=== PATIENT | female | born 2000 | race Caucasian/White ===

== ENCOUNTER 2024-09-17 14:21 | Emergency (ER) | payer MEDICAID, SELFPAY ==
[2024-09-17 14:30] VITALS: BP 141/91; PULSE 102; RESP 20; TEMP 36.6; O2SAT 97
[2024-09-17 14:33] VITALS: BP 141/91; PULSE 102; RESP 20; TEMP 36.6; O2SAT 97
[2024-09-17 15:36] VITALS: PULSE 95; O2SAT 98
[2024-09-17] MEDS: Amoxicillin 875/Clav. 125 TAB PO (15:55)
--- NOTE | 2024-09-17 15:58 | W.ED.GENAD ---
Discharge Plan Disposition Patient Disposition: Home Condition: Stable Discharge Details Clinical Impression: External otitis of right ear Primary Care Provider: Cait Luciano ED Provider: Wade Melgoza Home Meds and New Rx's Prescriptions: Continued fluticasone propionate 16 GM spray,suspension 1 spray NS DAILY Qty: 1 Rx Instructions: ONE SPRAY EACH NOSTRIL ONCE A DAY loratadine 10 MG tablet 1 tab PO HS Qty: 90 levalbuterol tartrate [Xopenex HFA] 1 PUFF HFA aerosol inhaler 2 puff Inhalation PRN PRN (Reason: Shortness Of Breath) amoxicillin-pot clavulanate 875-125 mg tablet 1 tab PO .bid for 10 days Discontinued Cortisporin-TC 3.3-3-10-0.5 mg/mL drops,suspension 10 drp otic (ear) BID Rx Instructions: apply to (cotton) wick; replace wick every 24 hours Discharge Instructions Instructions: Outer Ear Infection ED Additional Instructions: Use eardrops as prescribed. Please take tylenol (acetaminophen) 650 mg every 6 hours as needed for pain. Be sure to avoid any other medications that containe tylenol (acetaminophen). Do not use ibuprofen during . Please follow-up with ENT. Call for an appointment. Return to the ER immediately for any worsening or new concerning symptoms. Referrals: [facility] [Provider Group] Cait Luciano [Primary Care Provider] - Discharge Data Discharge Date/Time-TO BE ENTERED AT DEPARTURE: 09/17/24 16:41 HPI General Mode of arrival: ambulatory. Date/Time Provider Initiated Documentation: 09/17/24 14:56. Limitations to Documentation: no limitations. Information obtained by: patient. HPI Narrative: HISTORY OF PRESENT ILLNESS The patient is a 23-year-old female with right ear pain. She reports green pus with an unpleasant odor from her ear, burning sensation after eardrop use, pain radiating down her neck, and thick fluid accumulation. No fevers or rashes. No recent swimming. Using heat compresses for relief. Advised to take Tylenol and ibuprofen every 6 to 8 hours. Prescribed Augmentin for 10 days, received a dose at 0500 hours today. History of chronic inner ear infections since age 7, tonsillectomy at age 4, adenoidectomy, and tympanostomy tube placement at age 12. Difficulty chewing and eating due to pain, no gum swelling. Currently 28 weeks . Went to the emergency room at 0300 hours for pain, advised to continue Tylenol and prescribed Augmentin. No daily medications except inhaler and EpiPen as needed. Related Data Home Medications ?Medication ?Instructions ?Recorded ?Confirmed levalbuterol tartrate 45 2 puff inhalation PRN PRN 01/11/13 09/17/24 mcg/actuation aerosol inhaler Shortness Of Breath (Xopenex HFA) fluticasone propionate 50 1 spray NS DAILY ##1 05/26/13 09/17/24 mcg/actuation nasal spray,suspension loratadine 10 mg tablet 1 tab PO HS #90 tabs 05/26/13 09/17/24 amoxicillin 875 mg-potassium 1 tab PO .bid for 10 days 09/17/24 09/17/24 clavulanate 125 mg tablet Allergies Allergy/AdvReac Type Severity Reaction Status Date / Time doxycycline AdvReac Mild upstets Unverified 04/30/13 10:17 stomach General Stated Complaint: EarProblem GAURAV: 3 Review of Systems All systems reviewed & are unremarkable except as noted in HPI and below ENT Ears, Nose, Mouth, and Throat: Reports as per HPI Exam Const General: cooperative and no acute distress HENMT Head: normocephalic and atraumatic Ears: TM normal on the left, mastoids normal, EAC abnormal (lt) erythema, edema, EAC tenderness and other (not able to visualize right TM due to swelling of external canal) and periauricular adenopathy on the right (Infra-auricular) General nose exam: external nose normal Mouth: moist mucous membranes Throat: posterior oropharynx normal Eyes Conjunctivae: normal conjunctivae Sclera: normal sclerae Neck Neck: trachea midline and supple Resp Auscultation: clear to auscultation bilaterally, no rales, no rhonchi and no wheezes Cardio Jugular venous pressure: no JVD Rate: regular rate and not tachycardic Rhythm: regular rhythm Course Vital Signs Vital signs: Vital Signs Temperature 36.6 C 09/17/24 14:30 Pulse 102 H 09/17/24 14:30 Respiratory Rate 20 09/17/24 14:30 Blood Pressure 141/91 H 09/17/24 14:30 Pulse Oximetry 97 09/17/24 14:30 Temperature 36.6 C 09/17/24 14:33 Temperature Source Oral 09/17/24 14:33 Pulse 95 H 09/17/24 15:36 Respiratory Rate 20 09/17/24 14:33 Blood Pressure 141/91 H 09/17/24 14:33 Blood Pressure Position Sitting 09/17/24 14:33 Pulse Oximetry 98 09/17/24 15:36 Oxygen Delivery Method Room Air 09/17/24 14:33 Oxygen Flow Rate 0 09/17/24 14:33 Medical Decision Making ASSESSMENT AND PLAN Initial Assessment: 23-year-old female who is 28 weeks with right ear pain, neck pain, and difficulty chewing. History of chronic ear infections and recent green pus discharge from the ear. Patient seen multiple times at outside hospital ED. She was initially prescribed neomycin polymyxin hydrocortisone otic solution which cause significant discomfort. She was subsequently changed to ofloxacin drops but has not filled this prescription as yet. ED Course: - Examination revealed swollen and tender lymph node, and swollen ear canal. - Eardrum not visible. Patient with significant swelling and discomfort external canal. - Fingerstick test to rule out diabetes. Fingerstick 100. - Referral to ENT next week. - Tylenol 1000 mg up to four times daily for pain. - Confirmed safety of Augmentin during . - External canal ear wick was placed by me without complication. -Plan to discontinue other eardrops and start Ciprodex. Final Assessment: Patient has an outer ear infection with swollen lymph node, and is 28 weeks . Treatment includes eardrops, oral antibiotics, pain management, and follow-up with Dr. Alfaro. Clinical Impression: - External otitis - Disposition: - Discharge. Start Ciprodex. - Referral to Dr. Alfaro next week MDM Components Evaluation: - Number of Differential Diagnoses or Management Options: External otitis - Amount and Complexity of Data Reviewed: Physical examination, fingerstick test, medication review - Risk of Complication and Morbidity or Mortality: Moderate due to and potential complications from untreated ear infection This document was written with the assistance of PRANAY Rizvi. The patient consented to its use. Quality:SDOH Health Related Social Needs: No Data to Display PFSH All Active Problems (Updated 09/17/24 @ 16:12 by Wade Melgoza MD) External otitis of right ear (Acute) Social History Smoking/Tobacco Use Status: Never Smoking risk assessment performed?: Yes Alcohol Intake: never Drug use: Never Do you feel safe at home: Yes Do you feel safe in your relationship?: Yes
[2024-09-17 16:35] VITALS: BP 135/68; PULSE 93; O2SAT 99
== END 2024-09-17 16:41 | disposition home or self-care (01) ==
PROVIDERS: Emergency Provider Student in an Organized Health Care Education/Training Program; PCP Family Medicine
DX: O26.893 Other specified pregnancy related conditions, third trimester (principal); H60.91 Unspecified otitis externa, right ear; Z3A.28 28 weeks gestation of pregnancy
CPT/HCPCS: 82962; 99283